=== PATIENT | female | born 1995 ===

== ENCOUNTER 2018-04-13 14:36 | Inpatient (IN) | payer BC ==
--- NOTE | 2018-04-13 15:09 | ED ---
Psychiatric Complaint - HPI Summary HPI Summary: 22 y/o female presents to the ED c/o constant SI over the last week, worsening. Pt advised to come to the ED by her therapist. Pt feels unsafe alone at home. Pt has had previous SI episodes. Pt is unable to pinpoint any specific triggers. Associated sx: sleep disturbance - pt has trouble falling asleep but when she does sleep she states she sleeps alot, decreased appetite. PMHx anxiety and depression. - History Of Current Complaint Chief Complaint: [facility] Time Seen by Provider: 04/13/18 14:50 Hx Obtained From: Patient Onset/Duration: Lasting Days, Still Present Timing: Constant Character: Depressed, Anxious Aggravating Factor(s): Nothing Alleviating Factor(s): Nothing Related History: Positive For: Prior Psychiatric Issues Has Suicidal: Reports: Thoughts Has Homicidal: Denies: Thoughts - Allergies/Home Medications Allergies/Adverse Reactions: Allergies Allergy/AdvReac Type Severity Reaction Status Date / Time No Known Allergies Allergy Verified 04/13/18 14:43 Home Medications: Home Medications Escitalopram (NF) [Lexapro 20 mg (NF)] 20 mg PO BEDTIME 04/13/18 [History Confirmed 04/13/18] Shar 21 1-20 Tablet 1 tab PO DAILY 04/13/18 [History Confirmed 04/13/18] Zolpidem TAB* [Ambien TAB*] 5 mg PO BEDTIME PRN 04/13/18 [History Confirmed 05/21] PMH/Surg Hx/FS Hx/Imm Hx Previously Healthy: No Cardiovascular History: Denies: Hx Congestive Heart Failure Psychiatric History: Reports: Hx Anxiety, Hx Eating Disorder, Hx Depression Infectious Disease History: No Infectious Disease History: Denies: Traveled Outside the [place] in Last 30 Days - Family History Known Family History: Positive: Unknown - Social History Occupation: Student Lives: Dormitory/Roommates Review of Systems Constitutional: Negative Eyes: Negative ENT: Negative Cardiovascular: Negative Respiratory: Negative Gastrointestinal: Negative Genitourinary: Negative Musculoskeletal: Negative Skin: Negative Neurological: Negative Positive: Anxious, Depressed, Other - SI All Other Systems Reviewed And Are Negative: Yes Physical Exam - Summary Physical Exam Summary: VITAL SIGNS: Reviewed. GENERAL: Patient is a well-developed and nourished female who is lying comfortable in the stretcher. Patient is not in any acute respiratory distress. HEAD AND FACE: No signs of trauma. No ecchymosis, hematomas or skull depressions. No sinus tenderness. EYES: PERRLA, EOMI x 2, No injected conjunctiva, no nystagmus. EARS: Hearing grossly intact. Ear canals and tympanic membranes are within normal limits. MOUTH: Oropharynx within normal limits. NECK: Supple, trachea is midline, no adenopathy, no JVD, no carotid bruit, no c- spine tenderness, neck with full ROM. CHEST: Symmetric, no tenderness at palpation LUNGS: Clear to auscultation bilaterally. No wheezing or crackles. CVS: Regular rate and rhythm, S1 and S2 present, no murmurs or gallops appreciated. ABDOMEN: Soft, non-tender. No signs of distention. No rebound no guarding, and no masses palpated. Bowel sounds are normal. EXTREMITIES: FROM in all major joints, no edema, no cyanosis or clubbing. NEURO: Alert and oriented x 3. No acute neurological deficits. Speech is normal and follows commands. SKIN: Dry and warm Psych: Sad. No homicidal thoughts or plan. No signs of psychosis or pressure speech. No tangential speech. Triage Information Reviewed: Yes Vital Signs On Initial Exam: Initial Vitals Temp Pulse Resp BP Pulse Ox 97.6 F 94 19 128/84 97 04/13/18 14:40 04/13/18 14:40 04/13/18 14:40 04/13/18 14:40 04/13/18 14:40 Vital Signs Reviewed: Yes Diagnostics - Vital Signs Vital Signs Temp Pulse Resp BP Pulse Ox 04/13/18 14:40 97.6 F 94 19 128/84 97 - Laboratory Result Diagrams: 04/13/18 15:10 04/13/18 15:10 Lab Statement: Any lab studies that have been ordered have been reviewed, and results considered in the medical decision making process. Course/Dx - Course Assessment/Plan: 22 y/o female presents to the ED c/o constant SI over the last week, worsening. Pt advised to come to the ED by her therapist. Pt feels unsafe alone at home. Pt has had previous SI episodes. Pt is unable to pinpoint any specific triggers. Associated sx: sleep disturbance - pt has trouble falling asleep but when she does sleep she states she sleeps a lot, decreased appetite. PMHx anxiety and depression. Blood work w/o a significant abnormality. She is medically cleared. She is awaiting for a MHE. Patient is hemodynamically stable and A+O x 3. After MHE with Dr. Stewart, the pt will be admitted to [facility]. - Differential Dx/Clinical Impression Differential Diagnosis/HQI/PQRI: Positive: Anxiety, Depression, Suicidal Ideation Provider Diagnosis: Depression Discharge - Sign-Out/Discharge Documenting (check all that apply): Patient Departure - Discharge Plan Condition: Stable Disposition: ADMITTED TO [facility] - Billing Disposition and Condition Condition: STABLE Disposition: Admitted to [facility] - Attestation Statements Document Initiated by Scribe: Yes Documenting Scribe: Deondre Burns Provider For Whom Scribe is Documenting (Include Credential): Zachary Brown MD Scribe Attestation: Deondre Carpenter, scribed for Zachary Brown MD on 04/14/18 at 0729. Scribe Documentation Reviewed: Yes Provider Attestation: The documentation as recorded by the Deondre harris accurately reflects the service I personally performed and the decisions made by Zachary jerome MD
[2018-04-13 15:19] LABS: ABS Basophils 0 10^3/ul (0-0.2); ABS Eosinophils 0 10^3/ul (0-0.6); ABS Monocytes 0.7 10^3/ul (0-0.8); ABS Neutrophils 3.3 10^3/ul (1.5-7.7); ABS Nucleated RBC 0 10^3/ul; Eosinophil % 0.4 % (0-6); Hematocrit 42 % (35-47); Hemoglobin 13.8 g/dl (12.0-16.0); Lymphocyte % 33.8 % (25-47); Mean Corpuscular HGB Conc 33 g/dl (31-36); Mean Corpuscular Hemoglobin 29 pg (27-31); Mean Corpuscular Volume 86 fL (80-97); Mean Platelet Volume 9.1 um3 (7.4-10.4); Nucleated Red Blood Cells % 0.1; Platelet Count 279 10^3/ul (150-450); Red Blood Count 4.83 10^6/ul (4.00-5.40); Red Cell Distribution Width 13 % (10.5-15)
[2018-04-13 15:35] LABS: EGFR Non-African American 95.6 (>60)
[2018-04-13 15:54] LABS: Urine Appearance Clear; Urine Blood Negative (Negative); Urine Color Straw; Urine Ketones Negative (Negative); Urine Protein Negative (Negative); Urine Specific Gravity 1.006 (1.010-1.030); Urine Urobilinogen Negative (Negative)
[2018-04-13] MEDS ORDERED: Zolpidem TAB* 5 MG PO PRN (21:57)
[2018-04-13] MEDS ORDERED: Acetaminophen TAB* 325 MG PO PRN (22:08)
[2018-04-13] MEDS ORDERED: Al Hydrox/Mg Hydrox/Simet LIQ* 30 ML UDC PO PRN (22:08)
[2018-04-13] MEDS: LARIN PO SCH (22:30)
[2018-04-13] MEDS ORDERED: ESCITALOPRAM 20 MG PO SCH (23:00)
[2018-04-14] MEDS: Vitamin THERAPEUTIC TAB PO SCH (10:53)
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
[2018-04-14] MEDS: Venlafaxine EXT RELEASE CAP* 75 MG PO SCH (14:07)
[2018-04-14] MEDS ORDERED: hydrOXYzine HCL TAB* 50 MG PO PRN (14:58)
[2018-04-14] MEDS: LARIN PO SCH (20:36)
[2018-04-14] MEDS: QUEtiapine TAB* 25 MG PO SCH (20:36)
[2018-04-14] MEDS ORDERED: QUEtiapine TAB* 25 MG PO SCH (21:00)
[2018-04-15] MEDS: Vitamin THERAPEUTIC TAB PO SCH (11:43)
[2018-04-15] MEDS: Venlafaxine EXT RELEASE CAP* 75 MG PO SCH (11:43)
[2018-04-15] MEDS: LARIN PO SCH (22:26)
[2018-04-15] MEDS: QUEtiapine TAB* 25 MG PO SCH (22:26)
[2018-04-16] MEDS: Vitamin THERAPEUTIC TAB PO SCH (10:50)
[2018-04-16] MEDS: Venlafaxine EXT RELEASE CAP* 75 MG PO SCH (10:50)
--- NOTE | 2018-04-16 20:35 | PN ---
Subjective - Subjective Date of Service: 04/16/18 Service Type: [id number] Hosp care 15 min low complexity Subjective: Mandi reports that her auditory hallucinations are in good control although not gone totally and she didn't have any SI in last 24 hours. Ate some food and will try to do better as time passes and her stomach tolerates. Objective - Appearance Appearance: Healthy Appearing Dysmorphic Features: No Hygiene: Normal Grooming: Well Kept - Behavior Psychomotor Activities: Normal Exhibits Abnormal Movement: No - Attitude and Relatedness Attitude and Relatedness: Appropriate Eye Contact: Good - Speech Quality: Unpressured Latencies: Normal Quantity: Appropriate - Mood Patient's Decription of Mood: "Good" - Affect Observed Affect: Non-labile Affect Consistent with: Euthymia - Thought Process Patient's Thought Process: Coherent, Goal Directed Thought Content: Yes Passive Wish, No Suicidal Planning, No Homicidal Ideation, No Paranoid Ideation - Sensorium Experiencing Hallucinations: Yes Type of Hallucinations: Visual: No, Auditory: Yes, Command: No - Level of Consciousness Level of Consciousness: Alert Orientation: Yes Intact, Yes Orientated to Time, Yes Orientated to Place, Yes Orientated to Person - Impulse Control Impulse Control: Tenuous - Insight and Judgement Insight and Judgement: Poor - Group Participation Particating in Group Activities: Yes - Medication Management Medication Management Adherence: Yes Assessment - Assessment Merits Inpatient Hospitalization: For Immediate Safety, For Stabilization, Pending Safe DC Plan Plan - Plan Treatment Plan: Name: MANDI NEIL Birthdate: 1995 [id number] Continued Medication Management: Continue Outpt Medication Medications: Current Medications Acetaminophen (Tylenol Tab*) 650 mg PO Q4H PRN PRN Reason: PAIN or TEMP > 101 F Last Admin: 04/14/18 00:38 Dose: 650 mg Al Hydrox/Mg Hydrox/Simethicone (Maalox Plus*) 30 ml PO Q4H PRN PRN Reason: INDIGESTION Hydroxyzine HCl (Atarax Tab*) 50 mg PO Q6H PRN PRN Reason: ANXIETY Multivitamins (Theragran Tab*) 1 tab PO DAILY [facility] Last Admin: 04/16/18 10:50 Dose: 1 tab Pto:Non Formulary Med (Shar 07/23) 1 dose PO BEDTIME [facility] Last Admin: 04/15/18 22:26 Dose: 1 dose Quetiapine Fumarate (Seroquel Tab*) 50 mg PO BEDTIME [facility] Last Admin: 04/15/18 22:26 Dose: 50 mg Venlafaxine HCl (Effexor Xr Cap*) 75 mg PO DAILY [facility] Last Admin: 04/16/18 10:50 Dose: 75 mg - Discharge Plan Discharge Plan: Outpatient Follow Up Outpatient Program: [facility]
[2018-04-16] MEDS: QUEtiapine TAB* 25 MG PO SCH (22:36)
[2018-04-16] MEDS: LARIN PO SCH (22:36)
[2018-04-17] MEDS: Venlafaxine EXT RELEASE CAP* 75 MG PO SCH (10:25)
[2018-04-17] MEDS: Vitamin THERAPEUTIC TAB PO SCH (10:25)
[2018-04-17] MEDS ORDERED: Venlafaxine EXT RELEASE CAP* 75 MG PO ONE (13:05)
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
[2018-04-17] MEDS ORDERED: QUEtiapine TAB* 25 MG PO SCH (21:00)
[2018-04-17] MEDS: LARIN PO SCH (22:39)
[2018-04-18 08:15] VITALS: BP 125/66
[2018-04-18] MEDS ORDERED: Venlafaxine EXT RELEASE CAP* 75 MG PO SCH (09:00)
[2018-04-18] MEDS: Vitamin THERAPEUTIC TAB PO SCH (10:01)
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
== END 2018-04-18 13:06 | disposition home or self-care (01) | DRG 751 ==
LOC: ED 14:36 → BSU 19:11
PROVIDERS: ADMIT Psychiatry & Neurology Psychiatry; ATTEND Psychiatry & Neurology Psychiatry
DX: F33.3 Major depressive disorder, recurrent, severe with psychotic symptoms (principal); R45.851 Suicidal ideations; F50.9 Eating disorder, unspecified; F19.10 Other psychoactive substance abuse, uncomplicated; F10.10 Alcohol abuse, uncomplicated; Y90.0 Blood alcohol level of less than 20 mg/100 ml; Z81.8 Family history of other mental and behavioral disorders; Z81.1 Family history of alcohol abuse and dependence; Z82.69 Family history of other diseases of the musculoskeletal system and connective tissue; Z79.3 Long term (current) use of hormonal contraceptives
CPT/HCPCS: 36415; 80053; 80061; 80307; 80320; 80329; 81003; 83036; 84443; 85025; 90686; 99222; 99231; 99233; 99238; 99284; A9270-GY; G0480